=== PATIENT | male | born 1960 ===

== ENCOUNTER → 2023-06-14 01:06 | Outpatient (CLI) | payer BC, SELFPAY ==
[2023-06-14 12:57] LABS: Estimated GFR 84.05 (mL/min/1.73m2)
== END ==
PROVIDERS: PCP Family Medicine; Visit Provider Otolaryngology
DX: H90.3 Sensorineural hearing loss, bilateral (principal); H93.13 Tinnitus, bilateral; R42 Dizziness and giddiness
CPT/HCPCS: 82565

== ENCOUNTER → 2023-06-28 01:28 | Outpatient (CLI) | payer BC, SELFPAY ==
--- NOTE | 2023-06-28 | DI.MRI_ITS ---
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 Both noninfused and contrast i nfused sequences were performed. IAC protocol employed IV Contrast injected was 20 cc Dotarem. COMPARISON: No prior brain imaging exams were available for comparison FINDINGS: CEREBRAL PARENCHYMA: No evidence of intracranial hemorrhage, mass effect nor shift of midline structu re. No extraaxial fluid collections. Ventricles are not enlarged nor shifted. There is no significant focal signal abnormality in the cerebellar hemispheres nor within the grant, m idbrain, and thalami. There is no abnormal signal abnormality in the periventricular white matter. IAC's: No evidence of mass in the cerebellopontine angles nor evidence of intra canalicular acoustic schwannoma/neuroma. The 7th and 8th cranial nerves appear unremarkable bilaterally within the underwriting internship al auditory canals. DWI: No areas of restricted diffusion to suggest acute ischemic event. SWI: No microhemorrhages evident. There are no ring enhancing lesions in the brain. There is no abnormal meningeal enhancement. PITUITARY GLAND: No mass nor parasellar abnormality. No obvious abnormality in the cavernous sinuses. FLOW VOIDS: The expected flow void are noted. No evidence of obvious aneurysm nor obvious vascular ma lformation. PARANASAL SINUSES: There is significant mucosal thickening in the left maxillary sinus without a flui d level therein. Right maxillary sinus unremarkable. Mild mucosal thickening noted in the left fron melony sinus. Also some mucosal thickening in the right sphenoid sinus. ORBITS: No obvious abnormal findings. IMPRESSION: 1. No significant intracranial findings on this MRI scan of the brain. 2. No abnormal enhancing intracranial findings. There are no ring enhancing lesions in the brain and there is no abnormal meningeal enhancement. 3. No evidence of acoustic schwannoma/neuroma, as per request. DATA REPOSITORY:
[2023-06-28] MEDS: Gadoterate meglumine 20 ML SYRINGE IVP (13:22)
[2023-06-28] MEDS: Normal Saline Flush 10 ML SYR IVP (13:23)
== END ==
PROVIDERS: PCP Family Medicine; Visit Provider Otolaryngology
DX: H90.3 Sensorineural hearing loss, bilateral (principal); R42 Dizziness and giddiness
CPT/HCPCS: 70553